=== PATIENT | female | born 1995 | race African-American/Black ===

== ENCOUNTER 2016-05-22 19:18 | Emergency (ER) | payer OTHER ==
[~2016-05-22] VITALS: Ht 165.1 cm; Wt 121.5 kg
[~2016-05-22 19:18] MED LIST: ACYCLOVIR400 MG PO; AMOXICILLIN500 M1 PO; ASCORBIC ACID500 M3 PO; CARAFATE1 GM PO; CIPRO500 MG PO; COLACE100 MG PO; DOCUSATE SODIU100 MG PO; ENDOCET 5-3251 EACH PO; FERROUS SULFAT325 MG PO; FLAGYL500 MG PO; FLONASE16 G1 BOTH NARES; IBUPROFEN800 MG PO; INTUNIV4 MG PO; IRON325 M1 PO; KEFLEX500 MG PO; MOBIC15 MG PO; MOTRIN600 MG PO; MUCUS RELIEF600 M1 PO; NAPROSYN500 MG PO; NO MEDS; NOHOMEMEDS; PHENERGAN-CODE120 ML PO; PRAZOSIN HCL1 MG PO; PRENATAL TABLE1 EAC3 PO; PRILOSEC OTC20 MG PO; QUETIAPINE FUM100 MG PO; QUETIAPINE FUM200 MG PO; TYLENOL COLD M1 EAC1 PO; ULTRAM50 MG PO; VALTREX50 MG/ML PO; ZOFRAN4 MG PO
[2016-05-22 20:15] LABS: MCH 20.2 PG (29.0-34.0); MCHC 31.9 G/DL (30.0-36.0); MCV 63.2 FL (83-99); MEAN PLAT.VOLUME 10.9 uM^3 (9.5-12.4); PLATELET COUNT 346 K/uL (156-360); RBC DIS.WIDTH-CV 18.1 % (11.8-14.6); RBC DIS.WIDTH-SD 40.6 % (39-53)
[2016-05-22 22:13] LABS: ADD MIUA? YES; BILIRUBIN NEGATIVE; BLOOD MODERATE; COLOR YELLOW ((YELLOW)); GLUCOSE (STRIP) NEGATIVE; KETONES NEGATIVE; LEUKOCYTES NEGATIVE; NITRITE NEGATIVE; PROTEIN (STRIP) NEGATIVE; SPECIFIC GRAVITY 1.014 (1.000-1.030); UROBILINOGEN 0.2 MG/DL (0.2-1.0)
[2016-05-22 22:38] LABS: BACTERIA RARE /HPF; EPITHELIAL CELLS 1+ /HPF; MUCUS 1+ /LPF; RED BLOOD CELLS 0-5 /HPF (0-5); UCUL ADDED? NO; WHITE BLOOD CELLS 0-5 /HPF (0-5)
[2016-05-22] MEDS ORDERED: MIRENA52 MG IY (22:38)
[2016-05-23] MEDS ORDERED: NORCO 7.5/321 TABLET PO (00:08)
[2016-05-23] MEDS ORDERED: MOTRIN800 MG PO (00:08)
[2016-05-23 00:49] VITALS: BP 131/69
[2016-05-23 13:12] LABS: NEISSERIA GONORRHOEAE NEGATIVE
[2016-05-23 13:15] LABS: CHLAMYDIA TRACHOMATIS NEGATIVE
== END 2016-05-23 00:51 | disposition home or self-care (01) ==
LOC: EME 19:18 → RME 19:18
PROVIDERS: Physician Assistant
DX: N94.6 Dysmenorrhea, unspecified (principal); Z97.5 Presence of (intrauterine) contraceptive device
CPT/HCPCS: 76856; 81003; 84702; 85027; 87210; 87491; 87591; 99281; 99284; J3010